=== PATIENT | female | born 1965 | race Caucasian/White ===

== ENCOUNTER → 2017-06-02 | Emergency (ER) | payer BC | END | disposition home or self-care (01) | LOC: E/R 16:10 | DX: Z48.01 Encounter for change or removal of surgical wound dressing (principal) | CPT/HCPCS: 99281 ==

== ENCOUNTER 2017-06-06 16:56 | Emergency (ER) | payer BC | END 2017-06-06 19:25 | disposition home or self-care (01) | LOC: FTE 16:56 | DX: Z48.02 Encounter for removal of sutures (principal) | CPT/HCPCS: 99283 ==

== ENCOUNTER 2017-12-26 12:07 | Emergency (ER) | payer BC ==
[2017-12-26] MEDS: SILVER SULFADIAZINE 1% 25 GM CR TOP (12:53)
[2017-12-26] MEDS: DIPHTH/TET/ACEL PERTUSS (ADULT) 0.5 ML VIAL IM* (12:53)
[2017-12-26 13:23] LABS: ADD UMIC NO; UR ASCORBIC ACID 40 mg/dL (NEGATIVE); UR BILIRUBIN (Dip) NEGATIVE (NEGATIVE); UR BLOOD (Dip) NEGATIVE (NEGATIVE); UR CLARITY CLEAR (CLEAR); UR COLOR YELLOW (YELLOW); UR GLUCOSE (Dip) NEGATIVE (NEGATIVE); UR KETONES (Dip) NEGATIVE (NEGATIVE); UR LEUKOCYTE ESTERASE (Dip) NEGATIVE Leu/ul (NEGATIVE); UR NITRITE (Dip) NEGATIVE (NEGATIVE); UR TOTAL PROTEIN (Dip) NEGATIVE (NEGATIVE); UR UROBILINOGEN (Dip) 1+ mg/dL (NEGATIVE)
[2017-12-26] MEDS: CEFTRIAXONE 250 MG INJ IM (13:35)
[2017-12-26] MEDS: AZITHROMYCIN 250 MG TAB PO (13:35)
== END 2017-12-26 13:57 | disposition home or self-care (01) ==
LOC: FTE 12:07
DX: T22.231A Burn of second degree of right upper arm, initial encounter (principal); A60.09 Herpesviral infection of other urogenital tract; R10.2 Pelvic and perineal pain; X19.XXXA Contact with other heat and hot substances, initial encounter; Y92.89 Other specified places as the place of occurrence of the external cause; Z23 Encounter for immunization
CPT/HCPCS: 16000; 81003; 81025; 87086; 87591; 90471; 90715; 96372; 99284-25

== ENCOUNTER 2018-01-14 12:49 | Emergency (ER) | payer BC ==
[2018-01-14] MEDS: ONDANSETRON 4 MG INJ IV (14:14)
[2018-01-14] MEDS: SOD CHLORIDE 0.9% 1,000 ML IV (14:14)
[2018-01-14 14:18] LABS: ADD MAN DIFF? NO
[2018-01-14 14:19] LABS: BASOPHILS % 0.6 % (0.0-2.0); EOSINOPHILS # 0.2 10^3/ul (0.0-0.5); HEMATOCRIT 38.1 % (37.0-47.0); HEMOGLOBIN 12.2 g/dl (12.0-16.0); LYMPHOCYTES # 2.7 10^3/ul (0.8-2.9); LYMPHOCYTES % 38.6 % (15.0-51.0); MEAN CORPUSCULAR HEMOGLOBIN 27.6 pg (29.0-33.0); MEAN CORPUSCULAR VOLUME 86.2 fl (82.0-101.0); MEAN PLATELET VOLUME 10.7 fl (7.4-10.4); MONOCYTE # 0.5 10^3/ul (0.3-0.9); MONOCYTES % 7.3 % (0.0-11.0); NEUTROPHIL # 3.5 10^3/ul (1.6-7.5); NEUTROPHILS % 50.4 % (39.0-77.0); PLATELET COUNT 285 10^3/UL (140-415); RED BLOOD COUNT 4.42 10^6/ul (4.20-5.40); RED CELL DISTRIBUTION WIDTH 13.9 % (11.5-14.5)
[2018-01-14 14:39] LABS: ADD UMIC NO; UR ASCORBIC ACID 40 mg/dL (NEGATIVE); UR BILIRUBIN (Dip) NEGATIVE (NEGATIVE); UR BLOOD (Dip) NEGATIVE (NEGATIVE); UR CLARITY CLEAR (CLEAR); UR COLOR YELLOW (YELLOW); UR GLUCOSE (Dip) NEGATIVE (NEGATIVE); UR KETONES (Dip) NEGATIVE (NEGATIVE); UR LEUKOCYTE ESTERASE (Dip) NEGATIVE Leu/ul (NEGATIVE); UR NITRITE (Dip) NEGATIVE (NEGATIVE); UR SPECIFIC GRAVITY (Dip) 1.021 (1.003-1.030); UR TOTAL PROTEIN (Dip) NEGATIVE (NEGATIVE); UR UROBILINOGEN (Dip) NEGATIVE (NEGATIVE)
[2018-01-14 14:40] LABS: ALANINE AMINOTRANSFERASE 34 IU/L (13-69); ALBUMIN 4.6 g/dl (3.3-4.9); ALBUMIN/GLOBULIN RATIO 1.27; ALKALINE PHOSPHATASE 114 IU/L (42-121); ANION GAP 13 (8-16); ASPARTATE AMINO TRANSFERASE 34 IU/L (15-46); BILIRUBIN,INDIRECT 0.4 mg/dl (0-1.1); BILIRUBIN,TOTAL 0.4 mg/dl (0.2-1.3); BLOOD UREA NITROGEN 12 mg/dl (7-20); CALCIUM 9.5 mg/dl (8.4-10.2); CARBON DIOXIDE 27 mmol/L (21-31); CHLORIDE 106 mmol/L (97-110); CREATININE 0.68 mg/dl (0.44-1.00); GLUCOSE 90 mg/dl (70-220); LIPASE 128 U/L (23-300); POTASSIUM 3.8 mmol/L (3.5-5.1); SODIUM 142 mmol/L (135-144); TOTAL PROTEIN 8.2 g/dl (6.1-8.1)
[2018-01-14 15:28] LABS: OCCULT BLOOD STOOL NEGATIVE (NEGATIVE)
== END 2018-01-14 16:15 | disposition home or self-care (01) ==
LOC: FTE 12:49
DX: L29.0 Pruritus ani (principal)
CPT/HCPCS: 74176; 80053; 81003; 82270; 83690; 85025; 96374; 99285-25

== ENCOUNTER 2018-03-12 07:31 | Emergency (ER) | payer BC ==
[2018-03-12] MEDS: predniSONE 20 MG TAB PO (07:58)
[2018-03-12] MEDS: IPRATROPIUM (NEB) 0.5 MG/2.5 ML AMP NEB (08:13)
[2018-03-12] MEDS: ALBUTEROL 0.083% (NEB) 2.5 MG/3 ML AMP NEB (08:13)
== END 2018-03-12 08:52 | disposition home or self-care (01) ==
LOC: FTE 07:31
DX: J45.901 Unspecified asthma with (acute) exacerbation (principal); J30.9 Allergic rhinitis, unspecified
CPT/HCPCS: 94664; 99283-25